=== PATIENT | female | born 1985 | race Caucasian/White ===

== ENCOUNTER 2018-02-15 15:57 | Emergency (ER) | payer OTHER ==
[2018-02-15 16:26] VITALS: BMI 35.1
[2018-02-15 16:52] LABS: SQUAMOUS EPITHIAL 2 /hpf (0-5); URINE BACTERIA RARE (<OCC); URINE BILIRUBIN NEGATIVE (NEGATIVE); URINE BLOOD SMALL (NEGATIVE); URINE CLARITY SLIGHTY-CLOUDY (Clear); URINE COLOR STRAW (YELLOW); URINE GLUCOSE (UA) NEG (Normal); URINE LEUKOCYTE ESTERASE LARGE Leu/uL (Negative); URINE PROTEIN NEGATIVE (NEGATIVE); URINE UROBILINOGEN 0.2-1.0 mg/dL (0.2-1.0)
[2018-02-15 17:52] LABS: SPECIMEN COMMENT CLOUDY
--- NOTE | 2018-02-15 20:00 | OBDCSUM ---
Datetime: 02/15/2018 18:21 Discharged to, Provider: Home Follow up at, Provider: Dr. Sterling Disch Instr Activity: Normal activity Disch Instr Diet: Regular Discharge Instructions, Provider: Routine instructions given Discharge Time: 02/15/2018 18:21 Follow up in weeks, Provider: This week Disch Referrals: None Contraception discussed, Prov: Yes Disch Activity Restrictions: No exercising; No lifting; No sexual activity; Nothing in vagina - Inte rcourse, tampons, douche Discharge Diagnosis Prov Other: false labor
--- NOTE | 2018-02-15 20:00 | OBHP ---
Datetime: 02/15/2018 18:55 IP Adm Impression: , intrauterine IP Chief Complaint Other: vaginal pressure IP Admit Plan: Observation/Evaluation; Discharge home Admit Comment, IP Provider: Patient is a @ 26.5 wks, Di-Di twin . Patient reported vaginal pressure today in office with provider, denies bleeding, leaking, contractions, no dysuria. F FN was collected and provider examined patient, was L/T/C on exam. Patient observed in hospital. FFN negative, UA negative for infection. No signs of labor, FHR for Twin A=150 mod ulisses, +accels, no decel s. Twin B = 155 mod ulisses, +accels, no decels. Infrequent contractions noted. Patient ruled out for lab or or chorio, discharged home. Patient to follow up in office this week Pelvic Type - PN: Adequate Extremities - PN: Normal Abdomen - PN: Normal Back - PN: Normal Breast - PN: Normal Lungs - PN: Normal Heart - PN: Normal Thyroid - PN: Normal Neurologic - PN: Normal HEENT - PN: Normal General - PN: Normal FHR - Baseline A Provider: 150/155 Contraction Comments Provider: infrequent contractions Vital Signs Provider: Reviewed; Within Normal Limits Dilatation, Provider: closed Genitourinary Exam: Normal DTRs - PN: Normal
[2018-02-15 23:06] VITALS: BP 129/71; PULSE 93; RESP 18; TEMP 98.4; O2SAT 100
== END 2018-02-15 18:30 | disposition home or self-care (01) ==
LOC: H.EROB2 15:57
DX: O26.92 Pregnancy related conditions, unspecified, second trimester (principal); R10.2 Pelvic and perineal pain; O30.002 Twin pregnancy, unspecified number of placenta and unspecified number of amniotic sacs, second trimester; Z3A.26 26 weeks gestation of pregnancy

== ENCOUNTER 2018-04-13 13:56 | Inpatient (IN) | payer OTHER ==
[2018-04-13] MEDS: Lactated Ringer's 1,000 ML IV ONE ×2 (14:00→15:49)
[2018-04-13 14:14] VITALS: BMI 34.9
[2018-04-13] MEDS ORDERED: cefOXitin IV 1 gm in Dextrose 1 GM/50 ML BAG IVPB ONE (14:14)
[2018-04-13] MEDS ORDERED: Lactated Ringer's 1,000 ML IV SCH (14:15)
[2018-04-13] MEDS ORDERED: Betamethasone Soluspan 30 mg/5mL Inj Susp IM ONE (14:43)
[2018-04-13] MEDS ORDERED: Oxytocin 30 UNIT 30 UNITS/500 ML BAG IV ONE (15:09)
[2018-04-13] MEDS ORDERED: OXYTOCIN/0.9 % NS 20 UNIT/1,000 ML BAG IV SCH (15:15)
[2018-04-13 16:04] LABS: BASO % 0.3 % (0.0-2.0); EOS % 0.1 % (0.0-4.0); HEMOGLOBIN 13.4 g/dL (12.0-16.0); LYMPH # 1.3 K/uL (1.0-4.3); LYMPH % 22.6 % (20.0-40.0); MEAN CELL VOLUME 93.6 fl (81.0-99.0); MEAN CORPUSCULAR HEMOGLOBIN 30.5 pg (27.0-31.0); MEAN CORPUSCULAR HGB CONC 32.6 g/dL (33.0-37.0); MEAN PLATELET VOLUME 12.8 fl (7.2-11.7); MONO # 0.7 K/uL (0.0-0.8); MONO % 12.6 % (0.0-10.0); NEUT # 3.8 K/uL (1.8-7.0); NEUT % 64.4 % (50.0-75.0); NRBC % 0.1 % (0.0-0.0); RBC 4.38 Mil/uL (3.80-5.20); WHITE BLOOD COUNT 5.9 K/uL (4.8-10.8)
[2018-04-14] MEDS ORDERED: Betamethasone Soluspan 30 mg/5mL Inj Susp IM ONE (03:45)
[2018-04-14] MEDS ORDERED: Lactated Ringer's 1,000 ML IV SCH (06:45)
[2018-04-14] MEDS ORDERED: ePHEDrine 50 mg/ml Inj ONE (07:43)
[2018-04-14] MEDS ORDERED: Sodium Chloride 0.9% 10 ML IV ONE (07:44)
[2018-04-14] MEDS ORDERED: Phenylephrine 10 mg/ml Inj ONE (07:48)
[2018-04-14] MEDS ORDERED: Morphine 1 mg/ml preservative-free Inj(Duramorph) ONE (07:54)
[2018-04-14] MEDS ORDERED: OXYTOCIN/0.9 % NS 20 UNIT/1,000 ML BAG IV ONE ×2 (10:00→12:25)
[2018-04-14] MEDS ORDERED: Oxycodone/Acetaminophen 5/325 mg Tab PO PRN ×4 (10:00→12:25)
[2018-04-14] MEDS: Lactated Ringer's 1,000 ML IV SCH ×2 (15:32→22:26)
[2018-04-15 06:22] LABS: HEMOGLOBIN 9.5 g/dL (12.0-16.0); MEAN CELL VOLUME 92.3 fl (81.0-99.0); MEAN CORPUSCULAR HEMOGLOBIN 30.8 pg (27.0-31.0); MEAN CORPUSCULAR HGB CONC 33.4 g/dL (33.0-37.0); RBC 3.09 Mil/uL (3.80-5.20); RED CELL DISTRIBUTION WIDTH 13.8 % (11.5-14.5)
[2018-04-15] MEDS: Multivitamin With Minerals Tab PO SCH (08:03)
--- NOTE | 2018-04-15 08:11 | OBPPN ---
Datetime: 04/15/2018 08:05 PP Pain Prov: Within normal limits PP Nausea Prov: Denies PP Flatus Prov: Yes PP BM Prov: No PP Breasts Prov: Normal PP Heart Prov: Normal PP Lungs Prov: Normal PP Abdomen/Uterus Prov: Normal PP Lochia Prov: Normal PP Vulva/Perineum Prov: Normal PP CVA Tenderness Prov: Normal PP Extremities Prov: Normal PP C/S Incision Prov: Normal PP Impression Prov: Normal progression PP Plan Prov: Continue present management PP Progress Note Prov: stable pod1 no complaint dc corrigan oob with assistance dc dressing may shower advance diet as tolerated IP PP Procedures: None
[2018-04-15] MEDS ORDERED: Multivitamin With Minerals Tab PO SCH (09:00)
[2018-04-16] MEDS: Multivitamin With Minerals Tab PO SCH (08:12)
[2018-04-17] MEDS: Multivitamin With Minerals Tab PO SCH (12:52)
--- NOTE | 2018-04-17 15:30 | OBPPN ---
Datetime: 04/17/2018 15:26 PP Pain Prov: Within normal limits PP Nausea Prov: Denies PP Flatus Prov: Yes PP BM Prov: Yes PP Breasts Prov: Normal PP Heart Prov: Normal PP Lungs Prov: Normal PP Abdomen/Uterus Prov: Normal PP Lochia Prov: Normal PP Vulva/Perineum Prov: Normal PP CVA Tenderness Prov: Normal PP Extremities Prov: Normal PP C/S Incision Prov: Normal PP Comments Phys Exam Prov: incision clean and healing well PP Impression Prov: Normal progression PP Plan Prov: Continue present management PP Progress Note Prov: stable pod3 continue present care possible discharge in am IP PP Procedures: None Vital Signs Provider PP: Reviewed; Within Normal Limits
[2018-04-18] MEDS: Multivitamin With Minerals Tab PO SCH (08:53)
--- NOTE | 2018-04-18 12:41 | OBPPN ---
Datetime: 04/18/2018 12:36 PP Pain Prov: Within normal limits PP Pain Prov comment: No SOB, chest or leg pains PP Nausea Prov: Denies PP Flatus Prov: Yes PP BM Prov: Yes PP Nausea Prov comment: voiding well PP Flatus Prov comment: no excessive bleeding PP Breasts Prov: Normal PP Lungs Prov: Normal PP Abdomen/Uterus Prov: Abnormal PP Lochia Prov: Not Done PP Vulva/Perineum Prov: Not Done PP CVA Tenderness Prov: Normal PP Extremities Prov: Normal PP C/S Incision Prov: Normal PP Progress Prov: Normal PP Comments Phys Exam Prov: breast NE, NT; Abd soft not distended depressible, fundus firm below th e umb. Incision clean and dry no suppt or discharge, sutures in place no sign of bleeding or infectio n; Ext no calf tenderness PP Impression Prov: Normal progression PP Plan Prov: Discharge PP Progress Note Prov: D/C home with instructions and follow up with PMD next wk. IP PP Procedures: None Vital Signs Provider PP: Reviewed
--- NOTE | 2018-04-18 12:43 | OBDCSUM ---
Datetime: 04/18/2018 12:39 Discharged to, Provider: Home Discharged to, Provider: Home Follow up at, Provider: 1 wk Disch Instr Activity: Bedrest; May be up to bathroom; May be up for meals; May Shower Disch Instr Diet: Regular Discharge Instructions, Provider: Routine instructions given Discharge Diagnosis, Provider: Delivery Discharge Time: 04/18/2018 12:40 Follow up in weeks, Provider: Dr Jefferson Disch Referrals: None Disch Referrals: None Contraception discussed, Prov: Yes Disch Activity Restrictions: No exercising; No lifting; No driving; Minimize walking; Minimize stair -climbing; No sexual activity; Nothing in vagina - Simms, tampons, douche Discharge Diagnosis Prov Other: twins Contraception after Delivery: Undecided Datetime: 02/15/2018 18:21 Discharge Diagnosis, Provider: Delivery
[2018-04-18 19:43] VITALS: BP 122/75; PULSE 83; RESP 18; TEMP 98.4; O2SAT 99
--- NOTE | 2018-04-19 10:36 | OP ---
PROCEDURE DATE: 04/14/2018 PREOPERATIVE DIAGNOSES: Intrauterine at 35 weeks' twin gestation with discordant growth and multiparity. POSTOPERATIVE DIAGNOSES: Intrauterine at 35 weeks' twin gestation with discordant growth and multiparity. PROCEDURE: Primary low-transverse section with twin delivery, first baby is vertex and second baby is breech and bilateral tubal ligation. SURGEON: Jorje Jefferson MD MEDIA ACCOUNT EXECUTIVE: Olivier Fernández MD ANESTHESIA ADMINISTERED BY: Adolfo Gasca MD TYPE OF ANESTHESIA: Spinal anesthesia. DESCRIPTION OF PROCEDURE: With the patient in supine position and spinal anesthesia, the patient was prepped and draped in the usual sterile manner. Dr. Fernández was present and assisted in preparing the patient for section. Once this was done, a Pfannenstiel incision was made and taken down to the fascia in layers. The fascia was incised and extended bilaterally and also from the fascia by sharp dissection. Upon entering the abdominal cavity, the paracolic gutters were packed with wet laps, pushing the bowel away from the operative field. A bladder flap was established and pushing it away. Dr. Fernández was assisting each step of the way. A low-transverse incision was made in the uterus, curving upward and extended bilaterally. Baby A was removed in vertex cephalic presentation and baby B was removed in breech presentation. Baby A is boy and 9 and 9. Baby B is boy also and 9 and 9. There was clear fluid. After this was done, the placenta was removed intact. The uterus was exteriorized, cleaned and closed in two layers with 1 Vicryl, maintaining hemostasis. After that was done, the uterus was then repositioned. The tubes were tied according to modified Eliz fashion. Dr. Fernández was doing his side, and I was doing my side. Following this, the wet laps were removed from the paracolic gutters. The peritoneum was closed with 1 Vicryl, muscles were approximated with 1 Vicryl, and the fascia was closed with 1 Vicryl running interlocking stitch starting at each end and finishing in the midline. Dr. Fernández was doing his part, and I was doing my part. The subcutaneous layer was closed with 2-0 plain, and the skin was closed with jose luis. The patient tolerated the procedure well and was in satisfactory condition on her way to recovery room. Jorje Jefferson MD
== END 2018-04-18 14:15 | disposition home or self-care (01) | DRG 651 ==
LOC: H.EROB2 13:56 → H.L&D 14:14 → H.OB/GYN 04-14 12:00
PROVIDERS: ADMIT Specialist; ATTEND Specialist
PROC: 4A1HXCZ Monitoring of Products of Conception, Cardiac Rate, External Approach (ICD-10-PCS; 2018-04-13)
PROC: 10D00Z1 Extraction of Products of Conception, Low, Open Approach (ICD-10-PCS; principal; 2018-04-14)
PROC: 0UB70ZZ Excision of Bilateral Fallopian Tubes, Open Approach (ICD-10-PCS; 2018-04-14)
DX: O60.14X2 Preterm labor third trimester with preterm delivery third trimester, fetus 2 (principal); O60.14X1 Preterm labor third trimester with preterm delivery third trimester, fetus 1; O30.003 Twin pregnancy, unspecified number of placenta and unspecified number of amniotic sacs, third trimester; Z37.2 Twins, both liveborn; Z30.2 Encounter for sterilization; Z3A.35 35 weeks gestation of pregnancy; O32.1XX2 Maternal care for breech presentation, fetus 2